=== PATIENT | male | born 1995 | race Two or more races ===

== ENCOUNTER 2018-05-23 12:35 | Emergency (ER) | payer SELFPAY ==
[~2018-05-23] VITALS: Ht 182.9 cm; Wt 162.8 kg
[2018-05-23 12:37] VITALS: Ht 182.9 cm; Wt 162.8 kg
[2018-05-23 13:26] LABS: BASOPHIL % 0.3 % (0-2); PLATELET COUNT 282 x10^3mcL (130-400); RED CELL DISTRIBUTION WIDTH 13.7 % (11.5-14.5)
[2018-05-23 13:31] LABS: CALCIUM 8.9 mg/dL (8.5-10.1); CARBON DIOXIDE 32.5 mmol/L (21-32); CHLORIDE SERUM 101 mmol/L (98-107); GFR1 > 60 mL/min; GLUCOSE SERUM 113 mg/dL (74-106); POTASSIUM SERUM 4.7 mmol/L (3.5-5.1); SODIUM SERUM 137 mmol/L (136-145)
[2018-05-23 13:36] LABS: ALBUMIN 3.7 g/dL (3.4-5.0); ALKALINE PHOSPHATASE 101 U/L (46-116); ALT/SGPT 24 U/L (16-63); AMYLASE 56 U/L (25-115); AST/SGOT 9 U/L (15-37); BILIRUBIN TOTAL 0.35 mg/dL (0.20-1.00); LIPASE 88 IU/L (73-393)
[2018-05-23 13:38] LABS: TOTAL PROTEIN, SERUM 8.4 g/dL (6.4-8.2)
[2018-05-23 14:49] VITALS: BP 146/74
== END 2018-05-23 14:49 | disposition home or self-care (01) ==
LOC: ED 12:35
PROVIDERS: Specialist
DX: K80.50 Calculus of bile duct without cholangitis or cholecystitis without obstruction (principal); L70.9 Acne, unspecified; Z98.890 Other specified postprocedural states
CPT/HCPCS: J1885; J2270; J7030; Q0092

== ENCOUNTER 2018-05-25 17:12 | Inpatient (IN) | payer MEDICAID ==
[~2018-05-25] VITALS: Ht 185.4 cm; Wt 157.9 kg
[2018-05-25 17:34] VITALS: Ht 185.4 cm; Wt 157.9 kg
[2018-05-25 18:31] LABS: PLATELET COUNT 287 x10^3mcL (130-400); RED CELL DISTRIBUTION WIDTH 14.1 % (11.5-14.5)
[2018-05-25 18:42] LABS: CALCIUM 9.6 mg/dL (8.5-10.1); CHLORIDE SERUM 94 mmol/L (98-107); CREATININE SERUM 0.9 mg/dL (0.7-1.3); GFR1 > 60 mL/min; GLUCOSE SERUM 143 mg/dL (74-106); POTASSIUM SERUM 3.5 mmol/L (3.5-5.1); SODIUM SERUM 131 mmol/L (136-145)
[2018-05-25 18:46] LABS: ALKALINE PHOSPHATASE 159 U/L (46-116); ALT/SGPT 60 U/L (16-63); AST/SGOT 46 U/L (15-37); BILIRUBIN TOTAL 6.1 mg/dL (0.20-1.00); LIPASE 54 IU/L (73-393)
[2018-05-25 18:49] LABS: ALBUMIN 3.1 g/dL (3.4-5.0); TOTAL PROTEIN, SERUM 8.8 g/dL (6.4-8.2)
[2018-05-25 19:07] LABS: BAND NEUTROPHIL 3 % (0-10); BASOPHIL 0 % (0-2); MONOCYTE 5 % (0-7); SEGMENTED NEUTROPHILS 88 % (37-75)
[2018-05-25 19:08] LABS: rbc morphology (normal/abnorm) NORMAL (NORMAL)
[2018-05-25] MEDS ORDERED: ZOFRAN ODT4 MG PO (19:53)
[2018-05-25] MEDS ORDERED: MINOCYCLINE HC100 M1 PO (19:54)
[2018-05-25] MEDS ORDERED: IBUPROFEN800 MG PO (19:54)
[2018-05-25] MEDS ORDERED: NORCO1 TA2 PO (19:54)
[2018-05-25 20:12] LABS: CHOLESTEROL/HDL RATIO 2.8; PHOSPHOROUS 2.4 mg/dL (2.5-4.9)
[2018-05-25 20:15] LABS: FREE T4 1.7 ng/dL (0.76-1.46); FREE THYROXINE INDEX 4.8 ug/dL (1.4-4.5); T4(THYROXINE) 12.6 ug/dL (4.7-13.3)
[2018-05-25 20:20] LABS: T3 TOTAL 0.99 ng/mL
[2018-05-25 23:14] VITALS: BP 135/74
[2018-05-26 06:06] VITALS: BP 115/60
[2018-05-26 07:15] LABS: BASOPHIL % 0.1 % (0-2); PLATELET COUNT 272 x10^3mcL (130-400)
[2018-05-26 07:37] LABS: CALCIUM 8.7 mg/dL (8.5-10.1); CHLORIDE SERUM 97 mmol/L (98-107); CREATININE SERUM 0.9 mg/dL (0.7-1.3); GFR1 > 60 mL/min; GLUCOSE SERUM 113 mg/dL (74-106); PHOSPHOROUS 3.2 mg/dL (2.5-4.9); POTASSIUM SERUM 3.6 mmol/L (3.5-5.1); SODIUM SERUM 134 mmol/L (136-145)
[2018-05-26 09:10] VITALS: BP 134/74; BP 135/79
[2018-05-26 13:16] LABS: UA SPECIFIC GRAVITY >=1.030 (1.005-1.035); microscopic required? YES; urine erythrocyte TRACE (NEGATIVE)
[2018-05-26 13:35] LABS: AMPHETAMINE QUAL UR NONE DETECTED (See below)
[2018-05-26 13:39] VITALS: BP 136/53
[2018-05-26 16:39] VITALS: BP 141/82
[2018-05-26 22:16] VITALS: BP 102/55
[2018-05-27 05:54] VITALS: BP 113/50
[2018-05-27 06:10] LABS: BASOPHIL % 0.1 % (0-2); PLATELET COUNT 278 x10^3mcL (130-400); RED CELL DISTRIBUTION WIDTH 13.9 % (11.5-14.5)
[2018-05-27 06:32] LABS: ALKALINE PHOSPHATASE 189 U/L (46-116); ALT/SGPT 69 U/L (16-63); AST/SGOT 52 U/L (15-37); BILIRUBIN TOTAL 5.8 mg/dL (0.20-1.00); CALCIUM 8.7 mg/dL (8.5-10.1); CARBON DIOXIDE 26.8 mmol/L (21-32); CHLORIDE SERUM 100 mmol/L (98-107); CREATININE SERUM 0.9 mg/dL (0.7-1.3); GFR1 > 60 mL/min; GLUCOSE SERUM 95 mg/dL (74-106); PHOSPHOROUS 2.8 mg/dL (2.5-4.9); POTASSIUM SERUM 3.4 mmol/L (3.5-5.1); SODIUM SERUM 136 mmol/L (136-145); TOTAL PROTEIN, SERUM 7.3 g/dL (6.4-8.2)
[2018-05-27 06:51] LABS: ALBUMIN 2.4 g/dL (3.4-5.0)
[2018-05-27 17:08] VITALS: BP 118/56
[2018-05-27 20:57] VITALS: BP 140/81
[2018-05-28] VITALS (8 sets, daily range): BP systolic 99–162; BP diastolic 41–84
[2018-05-28 06:09] LABS: BASOPHIL % 0.4 % (0-2); PLATELET COUNT 282 x10^3mcL (130-400); RED CELL DISTRIBUTION WIDTH 14.4 % (11.5-14.5)
[2018-05-28 06:38] LABS: ALKALINE PHOSPHATASE 182 U/L (46-116); ALT/SGPT 83 U/L (16-63); AST/SGOT 56 U/L (15-37); BILIRUBIN TOTAL 2.11 mg/dL (0.20-1.00); CALCIUM 8.2 mg/dL (8.5-10.1); CARBON DIOXIDE 28.8 mmol/L (21-32); CHLORIDE SERUM 104 mmol/L (98-107); CREATININE SERUM 0.8 mg/dL (0.7-1.3); GFR1 > 60 mL/min; GLUCOSE SERUM 90 mg/dL (74-106); PHOSPHOROUS 3.8 mg/dL (2.5-4.9); POTASSIUM SERUM 3.4 mmol/L (3.5-5.1); SODIUM SERUM 141 mmol/L (136-145); TOTAL PROTEIN, SERUM 7.1 g/dL (6.4-8.2)
[2018-05-28 06:59] LABS: ALBUMIN 2.4 g/dL (3.4-5.0)
[2018-05-29 05:29] VITALS: BP 142/83
[2018-05-29 07:44] LABS: PLATELET COUNT 379 x10^3mcL (130-400); RED CELL DISTRIBUTION WIDTH 13.2 % (11.5-14.5)
[2018-05-29 07:50] LABS: ALKALINE PHOSPHATASE 179 U/L (46-116); ALT/SGPT 184 U/L (16-63); AST/SGOT 145 U/L (15-37); BILIRUBIN TOTAL 1.6 mg/dL (0.20-1.00); CARBON DIOXIDE 25.2 mmol/L (21-32); CHLORIDE SERUM 98 mmol/L (98-107); CREATININE SERUM 0.8 mg/dL (0.7-1.3); GFR1 > 60 mL/min; GLUCOSE SERUM 94 mg/dL (74-106); MAGNESIUM 2.1 mg/dL (1.8-2.4); PHOSPHOROUS 3.7 mg/dL (2.5-4.9); POTASSIUM SERUM 3.8 mmol/L (3.5-5.1); SODIUM SERUM 134 mmol/L (136-145)
[2018-05-29 07:56] LABS: ALBUMIN 2.8 g/dL (3.4-5.0)
[2018-05-29 08:59] VITALS: BP 155/90
[2018-05-29 13:35] LABS: BAND NEUTROPHIL 8 % (0-10); MONOCYTE 4 % (0-7); SEGMENTED NEUTROPHILS 77 % (37-75)
[2018-05-29 13:36] LABS: PLATELET MORPHOLOGY PLATELETS NORMAL; rbc morphology (normal/abnorm) NORMAL (NORMAL)
[2018-05-29 18:34] VITALS: BP 119/72
[2018-05-29 21:08] VITALS: BP 115/61
[2018-05-30 05:43] VITALS: BP 136/71
[2018-05-30 06:23] LABS: BASOPHIL % 0.1 % (0-2); PLATELET COUNT 339 x10^3mcL (130-400)
[2018-05-30 06:44] LABS: ALKALINE PHOSPHATASE 141 U/L (46-116); ALT/SGPT 256 U/L (16-63); AST/SGOT 156 U/L (15-37); BILIRUBIN DIRECT 1.05 mg/dL (0.0-0.2); BILIRUBIN TOTAL 1.7 mg/dL (0.20-1.00); CALCIUM 8.6 mg/dL (8.5-10.1); CARBON DIOXIDE 24.9 mmol/L (21-32); CHLORIDE SERUM 96 mmol/L (98-107); CREATININE SERUM 0.8 mg/dL (0.7-1.3); GFR1 > 60 mL/min; GLUCOSE SERUM 103 mg/dL (74-106); MAGNESIUM 1.9 mg/dL (1.8-2.4); PHOSPHOROUS 3.5 mg/dL (2.5-4.9); POTASSIUM SERUM 3.6 mmol/L (3.5-5.1); SODIUM SERUM 130 mmol/L (136-145); TOTAL PROTEIN, SERUM 7.6 g/dL (6.4-8.2)
[2018-05-30 06:49] LABS: ALBUMIN 2.6 g/dL (3.4-5.0)
[2018-05-30] MEDS ORDERED: BIA500 PO (08:13)
[2018-05-30] MEDS ORDERED: PRI20 PO (08:14)
[2018-05-30] MEDS ORDERED: AMOXICILLIN500 M1 PO (08:18)
[2018-05-30] MEDS ORDERED: LAC PO (08:19)
[2018-05-30 08:54] VITALS: BP 144/82
[2018-05-30] MEDS ORDERED: FLA500 PO (09:21)
[2018-05-30] MEDS ORDERED: APAP/HYDROCODON1 T13 PO (09:22)
[2018-05-30 13:57] VITALS: BP 144/82
== END 2018-05-30 15:22 | disposition home or self-care (01) | DRG 710 ==
LOC: ED 17:12 → MU 19:06
PROVIDERS: Emergency Medicine; Family Medicine; Internal Medicine Gastroenterology; Surgery
PROC: 0F798ZZ Dilation of Common Bile Duct, Via Natural or Artificial Opening Endoscopic (ICD-10-PCS; 2018-05-27 08:00)
PROC: 0DB68ZX Excision of Stomach, Via Natural or Artificial Opening Endoscopic, Diagnostic (ICD-10-PCS; 2018-05-27 08:00)
PROC: 0FT44ZZ Resection of Gallbladder, Percutaneous Endoscopic Approach (ICD-10-PCS; principal; 2018-05-28 12:00)
DX: A41.9 Sepsis, unspecified organism (principal); N17.0 Acute kidney failure with tubular necrosis; E43 Unspecified severe protein-calorie malnutrition; K80.62 Calculus of gallbladder and bile duct with acute cholecystitis without obstruction; E87.1 Hypo-osmolality and hyponatremia; E83.39 Other disorders of phosphorus metabolism; Z68.42 Body mass index [BMI] 45.0-49.9, adult; K82.A1 Gangrene of gallbladder in cholecystitis; K29.60 Other gastritis without bleeding; B96.81 Helicobacter pylori [H. pylori] as the cause of diseases classified elsewhere; F17.290 Nicotine dependence, other tobacco product, uncomplicated
CPT/HCPCS: 43262; 82962; 83880; 84439; C1769; J0295; J1170; J1610; J1650; J1956; J2250; J2270; J2405; J2543; J3010; J3490; J7030; J7040; J7120; Q0092; Q9967

== ENCOUNTER 2019-10-07 07:17 | Emergency (ER) | payer MEDICAID ==
[~2019-10-07] VITALS: Ht 185.4 cm; Wt 162.4 kg
[~2019-10-07 07:17] MED LIST: AMOXICILLIN500 M1 PO; APAP/HYDROCODON1 T13 PO; BIA500 PO; FLA500 PO; IBUPROFEN800 MG PO; LAC PO; MINOCYCLINE HC100 M1 PO; NORCO1 TA2 PO; PRI20 PO; ZOFRAN ODT4 MG PO
[2019-10-07 07:27] VITALS: Ht 185.4 cm; Wt 162.4 kg
[2019-10-07 08:05] VITALS: BP 143/77
== END 2019-10-07 08:05 | disposition home or self-care (01) ==
LOC: ED 07:17
DX: S31.114A Laceration without foreign body of abdominal wall, left lower quadrant without penetration into peritoneal cavity, initial encounter (principal); Z87.19 Personal history of other diseases of the digestive system; X58.XXXA Exposure to other specified factors, initial encounter; Y93.89 Activity, other specified; Y92.89 Other specified places as the place of occurrence of the external cause; Y99.8 Other external cause status

== ENCOUNTER 2019-10-22 10:03 | Emergency (ER) | payer MEDICAID ==
[~2019-10-22] VITALS: Ht 185.4 cm; Wt 166.5 kg
[2019-10-22 10:09] VITALS: BP 164/93; Ht 185.4 cm; Wt 166.5 kg
== END 2019-10-22 10:18 | disposition home or self-care (01) ==
LOC: ED 10:03
DX: S31.114D Laceration without foreign body of abdominal wall, left lower quadrant without penetration into peritoneal cavity, subsequent encounter (principal); W45.8XXD Other foreign body or object entering through skin, subsequent encounter